=== PATIENT | male | born 1945 | race Caucasian/White ===

== ENCOUNTER → 2018-01-10 | Outpatient (CLI) | payer OTHER ==
[~2018-01-10] MED LIST: APIX5TAB PO; ASPI-1005 PO; ATOR40TA69 PO; CARV6.2579 PO; DULO30CA2 PO; ENAL10TA PO; FINA5TAB2 PO; FURO20TA6 PO; GABA-531 PO; INSLAN SQ; INSU100V SQ; Isosorbide Mono 30MG Tab Sr PO; PANT40TA PO; TAMS-1 PO; TRAZ-221 PO
== END | disposition home or self-care (01) ==
LOC: SHCH 10:56
PROVIDERS: ATTEND Internal Medicine Cardiovascular Disease
DX: I25.10 Atherosclerotic heart disease of native coronary artery without angina pectoris (principal); I10 Essential (primary) hypertension; E78.00 Pure hypercholesterolemia, unspecified
CPT/HCPCS: 93306

== ENCOUNTER 2019-12-06 09:52 | Day surgery (SDC) | payer OTHER ==
[2019-12-06] VITALS (8 sets, daily range): BP systolic 112–144; BP diastolic 49–70
[~2019-12-06 09:52] MED LIST changes: -APIX5TAB PO; +BUPR100T13 PO; -DULO30CA2 PO; -ENAL10TA PO; +INSU100C6 SQ; -INSU100V SQ; -Isosorbide Mono 30MG Tab Sr PO; +SACU1TAB4 PO; -TRAZ-221 PO; +TRAZ-258 PO
[2019-12-06] MEDS ORDERED: SODIUM CHLORIDE 0.9% 1000ML 1,000 ML IV ONE (10:07)
[2019-12-06] MEDS ORDERED: LIDOCAINE HCL-MPF 2% 5ML VIAL ONE (11:05)
[2019-12-06] MEDS ORDERED: SIMETHICONE 40 MG/0.6 ML ML ONE (11:05)
[2019-12-06] MEDS ORDERED: PROPOFOL 10 MG/ML 20ML VIAL IV ONE ×3 (11:05→11:57)
--- NOTE | 2019-12-06 13:30 | NUR ---
TEST CALLED DR FINK OFFICE SPOKE TO [employer]MENT[employer] AND ORDER FAX FOR PATIENT TO BE SCHEDULED FOR [facility]. SHE STATED SHE WILL FOLLOW UP AND SCHEDULE IT AND CALL PATIENT
--- NOTE | 2019-12-06 13:40 | NUR ---
dc pt dc home via [place] ,no distress noted. denied any pain or discomforts accompanied by spouse
== END 2019-12-06 13:40 | disposition home or self-care (01) ==
LOC: DAH 09:52
PROVIDERS: ATTEND Internal Medicine Gastroenterology
DX: D50.9 Iron deficiency anemia, unspecified (principal); K21.0 Gastro-esophageal reflux disease with esophagitis; K31.7 Polyp of stomach and duodenum; D12.2 Benign neoplasm of ascending colon; K64.0 First degree hemorrhoids; Z86.010 Personal history of colon polyps; E78.5 Hyperlipidemia, unspecified; K21.9 Gastro-esophageal reflux disease without esophagitis; E66.01 Morbid (severe) obesity due to excess calories; I10 Essential (primary) hypertension; D69.6 Thrombocytopenia, unspecified; K29.50 Unspecified chronic gastritis without bleeding; Z79.82 Long term (current) use of aspirin; Z79.899 Other long term (current) drug therapy
CPT/HCPCS: 43239; 43251; 45380; 82948; A4215; A4221; A4222; A4223; A4606; A4620; A4657; A4663; J2704 ×3; J3490; J7030

== ENCOUNTER 2020-02-06 22:04 | Emergency (ER) | payer OTHER ==
[~2020-02-06 22:04] MED LIST changes: -PANT40TA PO
[2020-02-06 22:56] LABS: BASOPHILS % (AUTO) 0.8 % (0.0-5.0); EOSINOPHILS % (AUTO) 2.1 % (0.0-8.0); HEMATOCRIT 37.4 % (42-54); LYMPHOCYTES % (AUTO) 27.1 % (21.0-51.0); MEAN CORPUSCULAR HEMOGLOBIN 34.1 pg (27.0-33.0); MEAN CORPUSCULAR HGB CONC 34.5 g/dL (32.0-36.0); MEAN CORPUSCULAR VOLUME 98.9 fL (79-99); NEUTROPHILS % (AUTO) 62.1 % (40.0-77.0); PLATELET COUNT (AUTO) 136 K/uL (130-400); RED BLOOD CELL COUNT(AUTO) 3.78 MIL/uL (4.50-6.20); RED CELL DISTRIBUTION WIDTH 12.7 % (11.0-15.5)
[2020-02-06 23:07] LABS: INR 0.95 (0.85-1.15); PARTIAL THROMBOPLASTIN TIME 22.5 SEC (26.3-35.5); PROTHROMBIN TIME 10.3 SEC (9.6-11.6)
[2020-02-06 23:08] LABS: CREATININE 1.8 mg/dL (0.5-1.5); POTASSIUM 4.6 mmol/L (3.5-5.1)
[2020-02-06 23:09] LABS: MAGNESIUM 1.7 mg/dL (1.80-2.40)
[2020-02-06 23:13] LABS: ALBUMIN 3.6 g/dL (3.5-5.0); BILIRUBIN,TOTAL 0.9 mg/dL (0.2-1.0); TOTAL PROTEIN, SERUM 6.9 g/dL (6.0-8.3)
== END 2020-02-07 01:29 | disposition home or self-care (01) ==
LOC: EDH 22:04
DX: R60.0 Localized edema (principal); M79.662 Pain in left lower leg; R06.00 Dyspnea, unspecified; E11.21 Type 2 diabetes mellitus with diabetic nephropathy; E11.29 Type 2 diabetes mellitus with other diabetic kidney complication; R06.02 Shortness of breath; N28.9 Disorder of kidney and ureter, unspecified; G47.33 Obstructive sleep apnea (adult) (pediatric); I50.9 Heart failure, unspecified; E66.01 Morbid (severe) obesity due to excess calories; Z68.42 Body mass index [BMI] 45.0-49.9, adult
CPT/HCPCS: 36415; 71045; 80053; 82948; 83735; 83880; 84484; 85025; 85378; 85610; 85730; 86140; 93005; 93970

== ENCOUNTER → 2020-05-20 | Outpatient (CLI) | payer OTHER | END | disposition home or self-care (01) | LOC: SHCH 09:29 | PROVIDERS: ATTEND Internal Medicine Cardiovascular Disease | DX: I42.9 Cardiomyopathy, unspecified (principal); I51.7 Cardiomegaly; E66.9 Obesity, unspecified; E11.9 Type 2 diabetes mellitus without complications; E78.5 Hyperlipidemia, unspecified | CPT/HCPCS: 93306; 93356 ==

== ENCOUNTER → 2020-06-25 | Outpatient (CLI) | payer OTHER ==
[~2020-06-25] VITALS: Ht 175.3 cm; Wt 145.1 kg
[~2020-06-25] MED LIST changes: +REGADENOSON 0.4 MG/5 ML PF SYG IVP SCH
== END | disposition home or self-care (01) ==
LOC: SHCH 07:57
PROVIDERS: ATTEND Internal Medicine Cardiovascular Disease
DX: I25.10 Atherosclerotic heart disease of native coronary artery without angina pectoris (principal)
CPT/HCPCS: 78452; 93017; 96374; A9500 ×2

== ENCOUNTER → 2020-08-06 | Outpatient (CLI) | payer OTHER ==
[~2020-08-06] MED LIST changes: -REGADENOSON 0.4 MG/5 ML PF SYG IVP SCH
== END | disposition home or self-care (01) ==
LOC: SHCH 09:06
PROVIDERS: ATTEND Internal Medicine Cardiovascular Disease
DX: I73.9 Peripheral vascular disease, unspecified (principal)
CPT/HCPCS: 93925

== ENCOUNTER → 2022-03-19 | Outpatient (CLI) | payer OTHER | END | disposition home or self-care (01) | LOC: LAB 11:02 | PROVIDERS: ATTEND Internal Medicine | DX: M54.50 Low back pain, unspecified (principal) | CPT/HCPCS: 36415; 82565; 84520 ==

== ENCOUNTER → 2022-04-17 | Outpatient (CLI) | payer OTHER | END | disposition home or self-care (01) | LOC: RAH 09:48 | PROVIDERS: ATTEND Internal Medicine | DX: M47.26 Other spondylosis with radiculopathy, lumbar region (principal); M48.061 Spinal stenosis, lumbar region without neurogenic claudication | CPT/HCPCS: 72148 ==

== ENCOUNTER → 2022-10-15 | Outpatient (CLI) | payer OTHER ==
[~2022-10-15] MED LIST changes: +FINA-37 PO; -FINA5TAB2 PO
== END | disposition home or self-care (01) ==
LOC: RAH 12:44
PROVIDERS: ATTEND Internal Medicine Cardiovascular Disease
DX: I11.0 Hypertensive heart disease with heart failure (principal); I50.22 Chronic systolic (congestive) heart failure; E66.9 Obesity, unspecified; E78.5 Hyperlipidemia, unspecified; E11.9 Type 2 diabetes mellitus without complications
CPT/HCPCS: 93306

== ENCOUNTER 2023-08-26 10:18 | Emergency (ER) | payer OTHER ==
[~2023-08-26] VITALS: Ht 180.3 cm; Wt 117.9 kg
[2023-08-26] MEDS ORDERED: CACL 1GM SYG IVP ONE (10:19)
[2023-08-26] MEDS ORDERED: ROCURONIUM BROMIDE 10MG/1ML 5ML VL IV ONE ×2 (10:19)
[2023-08-26 10:20] VITALS: PULSE 94; RESP 20
[2023-08-26] MEDS ORDERED: ATROPINE 1MG SYG IVP ONE (10:29)
[2023-08-26] MEDS ORDERED: ATROPINE 1MG SYG IVP SCH (10:30)
== END 2023-08-26 10:35 ==
LOC: EDH 10:18
DX: I46.9 Cardiac arrest, cause unspecified (principal); I10 Essential (primary) hypertension; E11.9 Type 2 diabetes mellitus without complications; J44.9 Chronic obstructive pulmonary disease, unspecified; Z79.82 Long term (current) use of aspirin; Z79.899 Other long term (current) drug therapy
CPT/HCPCS: 82948; 71045; 99291; 93005; 94002; 92950; 31500; J7070; J3490 ×4; J0171; J1265; A9900; J0461